=== PATIENT | male | born 1945 | race Caucasian/White ===

== ENCOUNTER 2016-12-01 19:43 | Inpatient (IN) | payer MEDICARE, BC ==
[~2016-12-01] VITALS: Ht 165.1 cm; Wt 49.4 kg
[2016-12-01] MEDS ORDERED: IV NS 0.9% 500 ML BAG IV ONE (21:30)
[2016-12-01 21:44] LABS: CALCIUM, SERUM 7.1 mg/dL (8.5-10.1); CREATININE 5.6 mg/dL (0.6-1.3); INR 1.15 (0.87-1.13); POTASSIUM 4.3 mmol/L (3.5-5.1); PROTHROMBIN TIME 12.1 SECS (9.5-12.7)
[2016-12-01 22:13] LABS: BASOPHILS % (AUTO) 0.2 % (0.0-2.0); DIFF TOTAL % 100 %; EOSINOPHILS % (AUTO) 0.2 % (0.0-6.0); HEMATOCRIT 27 % (39-51); HEMOGLOBIN 7.9 g/dL (13.5-17.5); LYMPHOCYTES # (AUTO) 0.6 /CMM (0.8-4.8); LYMPHOCYTES % (AUTO) 7.3 % (20.0-44.0); MEAN CORPUSCULAR HEMOGLOBIN 28 PG (26.0-33.0); MEAN CORPUSCULAR HGB CONC 30 g/dl (31.0-36.0); MEAN CORPUSCULAR VOLUME 94 fL (80-96); MONOCYTES # (AUTO) 0.5 /CMM (0.1-1.30); MONOCYTES % (AUTO) 5.9 % (2.0-12.0); NEUTROPHILS # (AUTO) 6.9 /CMM (1.8-8.9); NEUTROPHILS % (AUTO) 86.4 % (43.0-81.0); PLATELET COUNT (AUTO) 131 /CMM (150-450); RED BLOOD CELL COUNT(AUTO) 2.84 MIL/uL (4.5-6.0)
[2016-12-01] MEDS ORDERED: ONDANSETRON HCL/PF 4 MG/2 ML VIAL IVP PRN (23:00)
[2016-12-01] MEDS ORDERED: ACETAMINOPHEN 325 MG TABLET PO PRN (23:00)
[2016-12-01] MEDS ORDERED: ZOLPIDEM TARTRATE 5 MG TABLET PO PRN (23:00)
[2016-12-01] MEDS ORDERED: MAGNESIUM HYDROXIDE 30 ML UDC PO PRN (23:00)
[2016-12-01] MEDS ORDERED: Z GUARD REMEDY 2 OZ OINT TP PRN (23:00)
[2016-12-01] MEDS ORDERED: IV NS 0.9% 500 ML IV ONE (23:09)
[2016-12-01] MEDS ORDERED: IV SET PRIMARY 1 EA INFUS.SET MC ONE (23:09)
[2016-12-01 23:25] VITALS: BP 99/67
[2016-12-02] VITALS: BP 99/67
[2016-12-02 04:00] VITALS: BP 98/67
[2016-12-02] MEDS ORDERED: SUCR1ORA6 PO (06:02)
[2016-12-02] MEDS ORDERED: ACET650T10 PO (06:02)
[2016-12-02] MEDS ORDERED: ASPI-991 PO (06:02)
[2016-12-02] MEDS ORDERED: CINA30TA PO (06:02)
[2016-12-02] MEDS ORDERED: PRED10TA PO (06:02)
[2016-12-02] MEDS ORDERED: HYDR-548 PO (06:02)
[2016-12-02] MEDS ORDERED: GUAI5SYR PO (06:02)
[2016-12-02] MEDS ORDERED: PANT40TA2 PO (06:02)
[2016-12-02] MEDS ORDERED: AZIT500T PO (06:02)
[2016-12-02] MEDS ORDERED: ACYC400T PO (06:02)
[2016-12-02] MEDS ORDERED: EVER0.5T PO (06:02)
[2016-12-02] MEDS ORDERED: METO25TA20 PO (06:02)
[2016-12-02] MEDS ORDERED: LEVA0.6320 NEB (06:02)
[2016-12-02] MEDS ORDERED: SULF1TAB47 PO (06:02)
[2016-12-02] MEDS ORDERED: CHOL400T11 PO (06:02)
[2016-12-02] MEDS ORDERED: TACR1CAP PO (06:02)
[2016-12-02] MEDS ORDERED: VIT1TABL46 PO (06:02)
[2016-12-02] MEDS ORDERED: ATOR10TA PO (06:02)
[2016-12-02 06:58] VITALS: BP 104/68
[2016-12-02] MEDS ORDERED: PANTOPRAZOLE 40 MG TABLET.DR PO SCH (07:30)
[2016-12-02 07:46] LABS: DIFF TOTAL % 100 %; HEMATOCRIT 25 % (39-51); HEMOGLOBIN 7.7 g/dL (13.5-17.5); LYMPHOCYTES # (AUTO) 1.3 /CMM (0.8-4.8); MEAN CORPUSCULAR HEMOGLOBIN 29 PG (26.0-33.0); MEAN CORPUSCULAR HGB CONC 31 g/dl (31.0-36.0); MEAN CORPUSCULAR VOLUME 95 fL (80-96); MONOCYTES # (AUTO) 0.8 /CMM (0.1-1.30); MONOCYTES % (AUTO) 9.6 % (2.0-12.0); NEUTROPHILS # (AUTO) 6.1 /CMM (1.8-8.9); NEUTROPHILS % (AUTO) 74.4 % (43.0-81.0); PLATELET COUNT (AUTO) 104 /CMM (150-450); RED BLOOD CELL COUNT(AUTO) 2.68 MIL/uL (4.5-6.0); WHITE BLOOD COUNT (AUTO) 8.2 K/uL (4.3-11.0)
[2016-12-02] MEDS ORDERED: AMIN30LI4 PO (08:25)
[2016-12-02] MEDS ORDERED: MIRT15TA PO (08:25)
[2016-12-02] MEDS: HYDROCODONE/APAP 5/325MG 1 EACH TABLET PO PRN ×2 (08:44→13:54)
[2016-12-02] MEDS ORDERED: HEPARIN SODIUM, PORCINE 5000 UNITS/1 ML VIAL SQ SCH (09:00)
[2016-12-02] MEDS ORDERED: EPOETIN ALFA (10,000 UNIT) 10,000 UNIT/ML VIAL SQ ONE (11:00)
[2016-12-02 11:09] LABS: CALCIUM, SERUM 6.9 mg/dL (8.5-10.1); CREATININE 6.1 mg/dL (0.6-1.3); POTASSIUM 3.8 mmol/L (3.5-5.1)
[2016-12-02 11:17] LABS: TROPONIN I 0.209 ng/mL (0.00-0.056)
[2016-12-02] MEDS ORDERED: HYDROGEL DRESSING 90 GM TUBE TP PRN (11:30)
[2016-12-02 11:48] LABS: PHOSPHORUS 4.4 mg/dL (2.5-4.9)
[2016-12-02 12:48] LABS: THYROID STIMULATING HORMONE 5.091 uIU/mL (0.358-3.74)
[2016-12-02] MEDS: HYDROGEL DRESSING 90 GM TUBE TP SCH (14:37)
[2016-12-02 16:00] VITALS: BP 128/93
[2016-12-02] MEDS ORDERED: ACETAMINOPHEN 650 MG/20.3 ML UDC NG PRN (18:30)
[2016-12-02] MEDS ORDERED: HYDROCODONE/APAP 10/325MG 1 EA TABLET PO PRN (18:30)
[2016-12-02] MEDS ORDERED: SUCRALFATE 1 G/10 ML UDC PO PRN (18:30)
[2016-12-02] MEDS ORDERED: GUAIFENESIN/D-METHORPHAN HB 5 ML UDC PO PRN (18:30)
[2016-12-02] MEDS: SULFAMETH/TRIMETH 800/160 MG 1 UDTAB TABLET PO SCH (18:46)
[2016-12-02] MEDS ORDERED: FEE PK DOSING 1 MIN EA MC ONE (19:44)
[2016-12-02 20:00] VITALS: BP 64/40
[2016-12-02] MEDS: AZITHROMYCIN 250 MG TABLET PO SCH (20:16)
[2016-12-02] MEDS ORDERED: SECONDARY IV SET 1 EA INFUS.SET MC ONE (20:49)
[2016-12-02] MEDS ORDERED: IV NS 0.9% 250 ML IV ONE ×2 (20:49→20:51)
[2016-12-02] MEDS ORDERED: IV SET PRIMARY PUMP SET 1 EA INFUS.SET MC ONE (20:49)
[2016-12-02] MEDS ORDERED: VANCOMYCIN 1 GM in IV D5W 250 ML IV ONE (21:00)
[2016-12-02] MEDS: ATORVASTATIN 10 MG TABLET PO SCH (22:24)
[2016-12-02] MEDS: MIRTAZAPINE 15 MG TABLET PO SCH (22:25)
[2016-12-02] MEDS: ACYCLOVIR 200 MG CAPSULE PO SCH (22:25)
[2016-12-02 22:30] VITALS: BP 71/54
[2016-12-02] MEDS ORDERED: IPRATROPIUM NEB FS 0.5 MG/2.5 ML AMPUL.NEB NEB PRN (22:30)
[2016-12-02] MEDS ORDERED: ACETYLCYSTEINE 20% SOLN 800 MG/4 ML VIAL ONE (23:12)
[2016-12-02] MEDS: ACETYLCYSTEINE 20% SOLN 800 MG/4 ML VIAL NEB SCH (23:22)
[2016-12-03] VITALS (21 sets, daily range): BP systolic 64–142; BP diastolic 38–93
[2016-12-03 05:32] LABS: DIFF TOTAL % 100 %; EOSINOPHILS % (AUTO) 0.2 % (0.0-6.0); HEMATOCRIT 23 % (39-51); LYMPHOCYTES # (AUTO) 0.8 /CMM (0.8-4.8); LYMPHOCYTES % (AUTO) 8.3 % (20.0-44.0); MEAN CORPUSCULAR HEMOGLOBIN 28 PG (26.0-33.0); MEAN CORPUSCULAR HGB CONC 30 g/dl (31.0-36.0); MEAN CORPUSCULAR VOLUME 95 fL (80-96); MONOCYTES # (AUTO) 0.7 /CMM (0.1-1.30); MONOCYTES % (AUTO) 7.3 % (2.0-12.0); NEUTROPHILS # (AUTO) 8.1 /CMM (1.8-8.9); NEUTROPHILS % (AUTO) 84.2 % (43.0-81.0); PLATELET COUNT (AUTO) 114 /CMM (150-450); RED BLOOD CELL COUNT(AUTO) 2.44 MIL/uL (4.5-6.0); WHITE BLOOD COUNT (AUTO) 9.6 K/uL (4.3-11.0)
[2016-12-03 05:39] LABS: HEMOGLOBIN 6.9 g/dL (13.5-17.5)
[2016-12-03 05:41] LABS: CALCIUM, SERUM 7.1 mg/dL (8.5-10.1); CREATININE 6.5 mg/dL (0.6-1.3); POTASSIUM 3.9 mmol/L (3.5-5.1)
[2016-12-03 05:46] LABS: INR 1.19 (0.87-1.13); PROTHROMBIN TIME 12.9 SECS (9.5-12.7)
[2016-12-03 06:23] LABS: BAND % (MANUAL) 9 % (0.0-5.0); LYMPHOCYTES % (MANUAL) 2 % (16-48)
[2016-12-03 06:25] LABS: ANISOCYTOSIS 3+; HYPOCHROMASIA 3+; PLATELET ESTIMATE DECREASED
[2016-12-03 06:46] LABS: ALBUMIN 2.6 g/dL (3.4-5.0); BILIRUBIN,TOTAL 1.1 mg/dL (0.2-1.0); CALCIUM, SERUM 7.2 mg/dL (8.5-10.1); CREATININE 6.7 mg/dL (0.6-1.3); PHOSPHORUS 3.8 mg/dL (2.5-4.9); POTASSIUM 3.8 mmol/L (3.5-5.1); TOTAL PROTEIN, SERUM 5.5 g/dL (6.4-8.2)
[2016-12-03 06:56] LABS: THYROID STIMULATING HORMONE 6.452 uIU/mL (0.358-3.74)
[2016-12-03] MEDS: PANTOPRAZOLE 40 MG TABLET.DR PO SCH (07:30)
[2016-12-03] MEDS ORDERED: ALBUTEROL FS 2.5 MG/3 ML VIAL.NEB NEB PRN (07:35)
[2016-12-03] MEDS: ACETYLCYSTEINE 20% SOLN 800 MG/4 ML VIAL NEB SCH ×3 (07:57→23:16)
[2016-12-03] MEDS: ASPIRIN EC 81 MG TABLET.DR PO SCH (09:00)
[2016-12-03] MEDS: METOPROLOL TARTRATE 25 MG TABLET PO SCH ×2 (09:00→18:20)
[2016-12-03] MEDS ORDERED: predniSONE 10 MG TABLET PO SCH (09:00)
[2016-12-03] MEDS: PROSOURCE / PROSTAT (PYXIS) 30 ML UDC PO SCH (09:00)
[2016-12-03] MEDS: VIT B CMPLX 3/FA/VIT C/BIOTIN 1 TAB TABLET PO SCH (09:00)
[2016-12-03] MEDS: TACROLIMUS ANHYDROUS 1 MG CAPSULE PO SCH ×2 (09:00→18:20)
[2016-12-03] MEDS: CINACALCET HCL 30 MG TABLET PO SCH (09:00)
[2016-12-03] MEDS: CHOLECALCIFEROL (VITAMIN D 3) 400 UNIT TABLET PO SCH ×2 (09:00→18:20)
[2016-12-03] MEDS: HYDROGEL DRESSING 90 GM TUBE TP SCH (09:17)
[2016-12-03] MEDS ORDERED: HEPARIN SODIUM, PORCINE 1,000 UNIT/ML VIAL ONE (11:22)
[2016-12-03] MEDS ORDERED: LIDOCAINE HCL/PF 1% 30 ML SDV ONE (11:22)
[2016-12-03] MEDS ORDERED: IOHEXOL 0 ML IV ONE (11:22)
[2016-12-03] MEDS ORDERED: FENTANYL PF 100MCG/2ML AMPUL ONE (13:04)
[2016-12-03] MEDS ORDERED: EPHEDRINE SULFATE IV 50MG VIAL ONE (13:57)
[2016-12-03] MEDS ORDERED: ANESTHESIA TRAY IN PYXIS 1 EA TRAY MC ONE (14:04)
[2016-12-03] MEDS ORDERED: NOREPINEPHRINE 8 MG in IV D5W 500 ML IV PRN (14:30)
[2016-12-03] MEDS ORDERED: IV SET PRIMARY PUMP SET 1 EA INFUS.SET MC ONE ×2 (14:31→17:38)
[2016-12-03] MEDS ORDERED: DOSE PER PHARMACY MICAFUNGIN 1 EA XX PRN (15:00)
[2016-12-03] MEDS ORDERED: NOREPINEPHRINE 16 MG in IV D5W 500 ML IV PRN (15:00)
[2016-12-03] MEDS: methylPREDNISolone SOD SUCC 125 MG/2ML VIAL IV SCH (15:22)
[2016-12-03 15:35] LABS: ABG BASE EXCESS -4.2 mmol/L; ABG HCO3 21.9 mmol/L; ABG PCO2 45.2 mmHg (35.0-45.0); ABG PH 7.303 (7.350-7.450); ABG PO2 233.7 mmHg (75.0-100.0); ABG TOTAL HEMOGLOBIN 7.5 G/dL (13.5-18.0); AaDO2 434.1 mmHg; O2Hb 95.7 % (94.0-97.0)
[2016-12-03] MEDS ORDERED: BLOOD IV SET 1 EA INFUS.SET MC ONE (15:48)
[2016-12-03] MEDS ORDERED: MEROPENEM 500 MG in IV NS 0.9% 50 ML IV SCH (16:00)
[2016-12-03] MEDS: ALBUTEROL FS 2.5 MG/3 ML VIAL.NEB NEB PRN ×2 (16:22→23:15)
[2016-12-03] MEDS ORDERED: IV NS 0.9% 250 ML IV ONE ×2 (16:34→17:38)
[2016-12-03] MEDS ORDERED: SECONDARY IV SET 1 EA INFUS.SET MC ONE (17:38)
[2016-12-03] MEDS: MEROPENEM 500 MG in IV NS 0.9% 50 ML IV SCH (17:43)
[2016-12-03] MEDS: MICAFUNGIN SODIUM 100 MG in IV NS 0.9% 100 ML IV SCH (18:14)
[2016-12-03] MEDS: VANCOMYCIN 500 MG in IV D5W 100 ML IV PRN (19:05)
[2016-12-03] MEDS: HYDROCODONE/APAP 5/325MG 1 EACH TABLET PO PRN (21:05)
[2016-12-03] MEDS: ATORVASTATIN 10 MG TABLET PO SCH (21:06)
[2016-12-03] MEDS: MIRTAZAPINE 15 MG TABLET PO SCH (21:06)
[2016-12-03] MEDS: ACYCLOVIR 200 MG CAPSULE PO SCH (21:11)
[2016-12-04] VITALS (53 sets, daily range): BP systolic 49–157; BP diastolic 31–106
[2016-12-04 00:06] LABS: ABG BASE EXCESS -6.7 mmol/L; ABG HCO3 22.3 mmol/L; ABG PCO2 61.8 mmHg (35.0-45.0); ABG PH 7.176 (7.350-7.450); ABG TOTAL HEMOGLOBIN 12.3 G/dL (13.5-18.0); ALLEN TEST Pass; AaDO2 599.2 mmHg; O2Hb 77.9 % (94.0-97.0)
[2016-12-04 01:15] LABS: ABG BASE EXCESS -7.8 mmol/L; ABG PCO2 43.4 mmHg (35.0-45.0); ABG PH 7.259 (7.350-7.450); ABG PO2 94.7 mmHg (75.0-100.0); ABG TOTAL HEMOGLOBIN 12.3 G/dL (13.5-18.0); ALLEN TEST Pass; AaDO2 574.9 mmHg; O2Hb 94.5 % (94.0-97.0)
[2016-12-04] MEDS: ACETYLCYSTEINE 20% SOLN 800 MG/4 ML VIAL NEB SCH ×2 (07:32→13:34)
[2016-12-04] MEDS: ALBUTEROL FS 2.5 MG/3 ML VIAL.NEB NEB PRN ×2 (07:32→13:33)
[2016-12-04] MEDS: ASPIRIN EC 81 MG TABLET.DR PO SCH (08:22)
[2016-12-04] MEDS: CINACALCET HCL 30 MG TABLET PO SCH (08:22)
[2016-12-04] MEDS: CHOLECALCIFEROL (VITAMIN D 3) 400 UNIT TABLET PO SCH ×2 (08:22→17:00)
[2016-12-04] MEDS: PROSOURCE / PROSTAT (PYXIS) 30 ML UDC PO SCH (08:22)
[2016-12-04] MEDS: methylPREDNISolone SOD SUCC 125 MG/2ML VIAL IV SCH (08:22)
[2016-12-04] MEDS: METOPROLOL TARTRATE 25 MG TABLET PO SCH ×2 (08:22→17:00)
[2016-12-04] MEDS: VIT B CMPLX 3/FA/VIT C/BIOTIN 1 TAB TABLET PO SCH (08:22)
[2016-12-04] MEDS: TACROLIMUS ANHYDROUS 1 MG CAPSULE PO SCH ×2 (08:22→17:00)
[2016-12-04] MEDS: HYDROGEL DRESSING 90 GM TUBE TP SCH (08:23)
[2016-12-04] MEDS: PANTOPRAZOLE 40 MG TABLET.DR PO SCH (08:23)
[2016-12-04] MEDS ORDERED: methylPREDNISolone SOD SUCC 125 MG/2ML VIAL IV SCH ×2 (09:00→15:00)
[2016-12-04] MEDS ORDERED: NOREPINEPHRINE 16 MG in IV D5W 500 ML IV PRN (09:30)
[2016-12-04] MEDS: NOREPINEPHRINE 16 MG in IV D5W 500 ML IV PRN (09:41)
[2016-12-04] MEDS ORDERED: IV SET PRIMARY PUMP SET 1 EA INFUS.SET MC ONE (10:35)
[2016-12-04 10:48] LABS: DIFF TOTAL % 100 %; EOSINOPHILS % (AUTO) 0.2 % (0.0-6.0); HEMATOCRIT 36 % (39-51); HEMOGLOBIN 11.5 g/dL (13.5-17.5); LYMPHOCYTES # (AUTO) 0.7 /CMM (0.8-4.8); LYMPHOCYTES % (AUTO) 23.2 % (20.0-44.0); MEAN CORPUSCULAR HEMOGLOBIN 29 PG (26.0-33.0); MEAN CORPUSCULAR HGB CONC 32 g/dl (31.0-36.0); MEAN CORPUSCULAR VOLUME 91 fL (80-96); MONOCYTES # (AUTO) 0.8 /CMM (0.1-1.30); MONOCYTES % (AUTO) 25.1 % (2.0-12.0); NEUTROPHILS # (AUTO) 1.6 /CMM (1.8-8.9); NEUTROPHILS % (AUTO) 51.5 % (43.0-81.0); PLATELET COUNT (AUTO) 107 /CMM (150-450); RED BLOOD CELL COUNT(AUTO) 3.93 MIL/uL (4.5-6.0); WHITE BLOOD COUNT (AUTO) 3.1 K/uL (4.3-11.0)
[2016-12-04] MEDS: PROPOFOL 100 ML IV PRN ×2 (11:00→18:57)
[2016-12-04 11:03] LABS: ALBUMIN 2.6 g/dL (3.4-5.0); BILIRUBIN,TOTAL 1.5 mg/dL (0.2-1.0); CALCIUM, SERUM 7.3 mg/dL (8.5-10.1); CREATININE 5.4 mg/dL (0.6-1.3); PHOSPHORUS 4.2 mg/dL (2.5-4.9); POTASSIUM 3.7 mmol/L (3.5-5.1); TOTAL PROTEIN, SERUM 5.7 g/dL (6.4-8.2)
[2016-12-04] MEDS ORDERED: SECONDARY IV SET 1 EA INFUS.SET MC ONE ×2 (11:29→16:54)
[2016-12-04] MEDS: Sodium Bicarbonate 50 MEQ in IV NS 0.9% 1,000 ML IV PRN ×3 (11:29→23:52)
[2016-12-04] MEDS ORDERED: Magnesium 1GM/D5W 100ML PREMIX PIGGYBACK IV ONE (11:30)
[2016-12-04 11:35] LABS: BAND % (MANUAL) 29 % (0.0-5.0)
[2016-12-04 11:36] LABS: ANISOCYTOSIS 2+; BASOPHILS % (MANUAL) 0 % (0.0-2.0); EOSINOPHILS % (MANUAL) 0 % (0-4); LYMPHOCYTES % (MANUAL) 14 % (16-48); METAMYELOCYTES % 2 % (0-0); PLATELET ESTIMATE DECREASED
[2016-12-04 12:55] LABS: ABG BASE EXCESS -4.1 mmol/L; ABG PCO2 38.2 mmHg (35.0-45.0); ABG PH 7.357 (7.350-7.450); ABG PO2 79.5 mmHg (75.0-100.0); ABG TOTAL HEMOGLOBIN 11.5 G/dL (13.5-18.0); ALLEN TEST Pass; AaDO2 595.3 mmHg; O2Hb 93.6 % (94.0-97.0)
[2016-12-04] MEDS ORDERED: SUCCINYLCHOLINE CHLORIDE 20 MG/ML VIAL IV ONE (14:00)
[2016-12-04] MEDS ORDERED: ETOMIDATE 2 MG/ML VIAL IV ONE (14:00)
[2016-12-04] MEDS: MICAFUNGIN SODIUM 100 MG in IV NS 0.9% 100 ML IV SCH (15:11)
[2016-12-04] MEDS: MEROPENEM 500 MG in IV NS 0.9% 50 ML IV SCH (17:00)
[2016-12-04] MEDS: MIRTAZAPINE 15 MG TABLET PO SCH (21:16)
[2016-12-04] MEDS: ACYCLOVIR 200 MG CAPSULE PO SCH (21:16)
[2016-12-04] MEDS: ATORVASTATIN 10 MG TABLET PO SCH (21:16)
[2016-12-05] VITALS (62 sets, daily range): BP systolic 75–121; BP diastolic 29–74
[2016-12-05] MEDS: ACETYLCYSTEINE 20% SOLN 800 MG/4 ML VIAL NEB SCH ×3 (00:09→15:49)
[2016-12-05] MEDS: ALBUTEROL FS 2.5 MG/3 ML VIAL.NEB NEB PRN ×2 (00:09→07:38)
[2016-12-05 04:56] LABS: HEMATOCRIT 34 % (39-51); HEMOGLOBIN 11.3 g/dL (13.5-17.5); MEAN CORPUSCULAR HEMOGLOBIN 30 PG (26.0-33.0); MEAN CORPUSCULAR HGB CONC 33 g/dl (31.0-36.0); MEAN CORPUSCULAR VOLUME 91 fL (80-96); PLATELET COUNT (AUTO) 91 /CMM (150-450); RED BLOOD CELL COUNT(AUTO) 3.76 MIL/uL (4.5-6.0)
[2016-12-05 05:13] LABS: ALBUMIN 2.1 g/dL (3.4-5.0); BILIRUBIN,TOTAL 1.7 mg/dL (0.2-1.0); CALCIUM, SERUM 6.6 mg/dL (8.5-10.1); CREATININE 5.3 mg/dL (0.6-1.3); PHOSPHORUS 4.8 mg/dL (2.5-4.9); POTASSIUM 3.8 mmol/L (3.5-5.1); TOTAL PROTEIN, SERUM 4.9 g/dL (6.4-8.2)
[2016-12-05 05:50] LABS: ANISOCYTOSIS 2+; PLATELET ESTIMATE DECREASED
[2016-12-05] MEDS: PROPOFOL 100 ML IV PRN ×2 (05:54→16:53)
[2016-12-05 06:06] LABS: INR 1.36 (0.87-1.13); PROTHROMBIN TIME 14.7 SECS (9.5-12.7)
[2016-12-05] MEDS: CHOLECALCIFEROL (VITAMIN D 3) 400 UNIT TABLET PO SCH ×2 (08:31→17:23)
[2016-12-05] MEDS: ASPIRIN EC 81 MG TABLET.DR PO SCH (08:31)
[2016-12-05] MEDS: methylPREDNISolone SOD SUCC 125 MG/2ML VIAL IV SCH (08:31)
[2016-12-05] MEDS: Sodium Bicarbonate 50 MEQ in IV NS 0.9% 1,000 ML IV PRN (08:31)
[2016-12-05] MEDS: METOPROLOL TARTRATE 25 MG TABLET PO SCH ×2 (08:32→17:23)
[2016-12-05] MEDS: PANTOPRAZOLE 40 MG TABLET.DR PO SCH (08:32)
[2016-12-05] MEDS: TACROLIMUS ANHYDROUS 1 MG CAPSULE PO SCH ×2 (08:32→17:23)
[2016-12-05] MEDS: CINACALCET HCL 30 MG TABLET PO SCH (08:32)
[2016-12-05] MEDS: VIT B CMPLX 3/FA/VIT C/BIOTIN 1 TAB TABLET PO SCH (08:32)
[2016-12-05] MEDS: PROSOURCE / PROSTAT (PYXIS) 30 ML UDC PO SCH (08:32)
[2016-12-05] MEDS: HYDROGEL DRESSING 90 GM TUBE TP SCH (08:33)
[2016-12-05] MEDS: HYDROCORTISONE SOD SUCCINATE 100 MG/2 ML VIAL IV SCH ×3 (08:57→17:23)
[2016-12-05] MEDS ORDERED: IV SET PRIMARY PUMP SET 1 EA INFUS.SET MC ONE (10:07)
[2016-12-05] MEDS: NOREPINEPHRINE 16 MG in IV D5W 500 ML IV PRN (10:08)
[2016-12-05 10:12] LABS: ABG BASE EXCESS -6.7 mmol/L; ABG HCO3 18.6 mmol/L; ABG PCO2 36.3 mmHg (35.0-45.0); ABG PH 7.327 (7.350-7.450); ABG PO2 74.5 mmHg (75.0-100.0); ABG TOTAL HEMOGLOBIN 11.7 G/dL (13.5-18.0); ALLEN TEST Pass; AaDO2 602.2 mmHg; O2Hb 91.3 % (94.0-97.0)
[2016-12-05] MEDS ORDERED: IV NS 0.9% 1,000 ML IV PRN (13:00)
[2016-12-05] MEDS: [UNRECOGNIZED DRUG - OTHER] PO SCH ×2 (13:20→17:24)
[2016-12-05] MEDS: EVEROLIMUS PO SCH ×2 (13:20→17:24)
[2016-12-05] MEDS: VANCOMYCIN 500 MG in IV D5W 100 ML IV PRN (13:21)
[2016-12-05] MEDS: MICAFUNGIN SODIUM 100 MG in IV NS 0.9% 100 ML IV SCH (15:22)
[2016-12-05] MEDS: MEROPENEM 500 MG in IV NS 0.9% 50 ML IV SCH (17:21)
[2016-12-05] MEDS: SULFAMETH/TRIMETH 800/160 MG 1 UDTAB TABLET PO SCH (17:23)
[2016-12-05] MEDS: AZITHROMYCIN 250 MG TABLET PO SCH (17:23)
[2016-12-05 21:13] LABS: BAND % (MANUAL) 27 % (0.0-5.0); LYMPHOCYTES % (MANUAL) 10 % (16-48)
[2016-12-06 03:08] LABS: HEPATITIS C VIRUS AB <0.1 s/co ratio (0.0-0.9)
[2016-12-06 07:12] LABS: *SPE ALBUMIN 3.4 g/dL (2.9-4.4)
== END 2016-12-05 20:00 | disposition short-term general hospital (02) | DRG 314 ==
LOC: ER 19:47 → TELE 21:53 → MED 12-02 12:20 → ICU 12-03 13:55
PROVIDERS: ADMIT Nurse Practitioner Acute Care; ATTEND Nurse Practitioner Acute Care
PROC: 05HN33Z Insertion of Infusion Device into Left Internal Jugular Vein, Percutaneous Approach (ICD-10-PCS; 2016-12-03)
PROC: B514YZA Fluoroscopy of Left Jugular Veins using Other Contrast, Guidance (ICD-10-PCS; 2016-12-03)
PROC: 30233N1 Transfusion of Nonautologous Red Blood Cells into Peripheral Vein, Percutaneous Approach (ICD-10-PCS; 2016-12-03)
PROC: 5A1D60Z (ICD-10-PCS; 2016-12-03)
PROC: 5A1945Z Respiratory Ventilation, 24-96 Consecutive Hours (ICD-10-PCS; principal; 2016-12-04)
PROC: 0BH18EZ Insertion of Endotracheal Airway into Trachea, Via Natural or Artificial Opening Endoscopic (ICD-10-PCS; 2016-12-04)
PROC: 02HV33Z Insertion of Infusion Device into Superior Vena Cava, Percutaneous Approach (ICD-10-PCS; 2016-12-04)
PROC: B548ZZA Ultrasonography of Superior Vena Cava, Guidance (ICD-10-PCS; 2016-12-04)
PROC: 5A09357 Assistance with Respiratory Ventilation, Less than 24 Consecutive Hours, Continuous Positive Airway Pressure (ICD-10-PCS; 2016-12-04)
DX: T82.510A Breakdown (mechanical) of surgically created arteriovenous fistula, initial encounter (principal); A41.9 Sepsis, unspecified organism; N18.6 End stage renal disease; G93.41 Metabolic encephalopathy; E43 Unspecified severe protein-calorie malnutrition; R65.21 Severe sepsis with septic shock; J18.9 Pneumonia, unspecified organism; J96.01 Acute respiratory failure with hypoxia; J90 Pleural effusion, not elsewhere classified; D61.818 Other pancytopenia; E87.2 Acidosis; L03.114 Cellulitis of left upper limb; R64 Cachexia; Z68.1 Body mass index [BMI] 19.9 or less, adult; I13.2 Hypertensive heart and chronic kidney disease with heart failure and with stage 5 chronic kidney disease, or end stage renal disease; J96.11 Chronic respiratory failure with hypoxia; J98.11 Atelectasis; T86.818 Other complications of lung transplant; Y71.2 Prosthetic and other implants, materials and accessory cardiovascular devices associated with adverse incidents; Y83.9 Surgical procedure, unspecified as the cause of abnormal reaction of the patient, or of later complication, without mention of misadventure at the time of the procedure; Y92.009 Unspecified place in unspecified non-institutional (private) residence as the place of occurrence of the external cause; Z99.2 Dependence on renal dialysis; Z85.72 Personal history of non-Hodgkin lymphomas; K21.9 Gastro-esophageal reflux disease without esophagitis; D63.8 Anemia in other chronic diseases classified elsewhere; D69.59 Other secondary thrombocytopenia; E83.42 Hypomagnesemia; E87.70 Fluid overload, unspecified; F32.9 Major depressive disorder, single episode, unspecified; I25.10 Atherosclerotic heart disease of native coronary artery without angina pectoris; K21.0 Gastro-esophageal reflux disease with esophagitis; Z86.718 Personal history of other venous thrombosis and embolism; Z86.711 Personal history of pulmonary embolism; Z85.71 Personal history of Hodgkin lymphoma; L98.9 Disorder of the skin and subcutaneous tissue, unspecified; J98.4 Other disorders of lung; E88.09 Other disorders of plasma-protein metabolism, not elsewhere classified; R94.31 Abnormal electrocardiogram [ECG] [EKG]; I50.9 Heart failure, unspecified; L89.152 Pressure ulcer of sacral region, stage 2; Z99.81 Dependence on supplemental oxygen; Z98.61 Coronary angioplasty status
CPT/HCPCS: 31720; 36415; 36600; 71010-TC; 71250-TC; 76700-TC; 80048-TC; 80053-TC; 80061-TC; 80202-TC; 82140-TC; 82306; 82533; 82728-TC; 82746; 82803-TC; 83540-TC; 83605-TC; 83615-TC; 83735-TC; 83880; 84100-TC; 84155; 84165; 84439-TC; 84443-TC; 84484-TC; 85025-TC; 85045-TC; 85385-TC; 85610-TC; 85730-TC; 86706; 86803; 86850-TC; 86921-TC; 87040-TC; 87070-TC; 87081-TC; 87186-TC; 87340; 94003-TC; 94799-TC; A4216; A4606; A6248; A6402; C1750; C1751; C1769; J0330; J0885; J1644; J1720; J2185; J2248; J2930; J3010; J3370; J3475; J3490; J7030; J7040; J7050; J7060; J7507; P9016-BL; Q9967; Z7610